=== PATIENT | female | born 1985 | race Caucasian/White ===

== ENCOUNTER 2019-07-12 18:41 | Emergency (ER) | payer OTHER ==
[2019-07-12 18:57] VITALS: BP 111/69; PULSE 74; TEMP 98.1; BMI 22.4
[2019-07-12] MEDS ORDERED: CYCLOBENZAPRINE HCL 10 MG TABLET (FP) PO ONE (19:10)
[2019-07-12] MEDS ORDERED: KETOROLAC TROMETHAMINE 60 MG/2 ML VIAL IM ONE (19:10)
[2019-07-12] MEDS ORDERED: predniSONE 20 MG TABLET (UD) PO ONE (19:10)
[2019-07-12] MEDS ORDERED: predniSONE 20 MG TABLET (UD) ONE (19:11)
[2019-07-12] MEDS ORDERED: KETOROLAC TROMETHAMINE 60 MG/2 ML VIAL ONE (19:11)
[2019-07-12] MEDS ORDERED: CYCLOBENZAPRINE HCL 10 MG TABLET (FP) ONE (19:11)
--- NOTE | 2019-07-12 19:28 | PDOC ---
Documentation entered by Andre Carlos SCRIBE, acting as scribe for Keri Matos MD. Keri Matos MD: This documentation has been prepared by the Terrance henry Xhesika, SCRIBE, under my direction and personally reviewed by me in its entirety. I confirm that the documentation accurately reflects all work, treatment, procedures, and medical decision making performed by me. History of Present Illness - General Chief Complaint: Pain, Acute Stated Complaint: LBP Time Seen by Provider: 07/12/19 19:04 History Source: Patient Exam Limitations: No Limitations - History of Present Illness Initial Comments: 07/12/19 19:14 The patient is a 34 year old female, with no significant PMH of who presents to the emergency department with lower back pain since 5pm. The patient states she leaned over to clean her cats litter box and she might have pulled a muscle. The patient reports worsening pain with walking but denies any alleviating factors. Patient notes she took 2 motrins, with no improvement of symptoms. Patient notes she never experienced this pain before. PAST MEDICAL HISTORY: no significant history PAST SURGICAL HISTORY: left ovarian cyst FAMILY HISTORY: no pertinent history SOCIAL HISTORY: Pt lives with family and is employed. current everyday smoker. occasional alcohol use. MEDICATIONS: reviewed ALLERGIES: As per nursing notes 07/12/19 19:25 Assessment and plan: This is a 34-year-old female who was bending over when suddenly she felt pain in her low back area patient denies history of similar pain in the past. Patient said pain is severe enough that she is having difficulty ambulating or moving. Patient took some naproxen for the pain before coming in. Patient given Toradol, Flexeril and prednisone. Prescription sent to pharmacy for naproxen and Flexeril. Patient discharged and given Dr. Kaminski orthopedist referral Past History - Past Medical History Allergies/Adverse Reactions: Allergies Allergy/AdvReac Type Severity Reaction Status Date / Time No Known Allergies Allergy Verified 07/12/19 18:42 Home Medications: Ambulatory Orders Cyclobenzaprine HCl [Flexeril 10 mg] 10 mg PO BID PRN #14 tablet 07/12/19 Naproxen [Naprosyn] 500 mg PO BID #28 tablet 07/12/19 Asthma: No COPD: No Diabetes: No HTN: No - Surgical History Abdominal Surgery: Yes (LT OVARIAN CYST.) - Immunization History Td Vaccination: Yes Immunization Up to Date: Yes - Psycho Social/Smoking Cessation Hx Smoking Status: Yes Smoking History: Current every day smoker Years of Tobacco Use: 14 Have you smoked in the past 12 months: Yes Number of Cigarettes Smoked Daily: 5 Information on smoking cessation initiated: Yes 'Breaking Loose' booklet given: 01/05/14 Hx Alcohol Use: Yes (OCASIONAL) Drug/Substance Use Hx: No Substance Use Type: Alcohol, Cocaine Review of Systems - Review of Systems Able to Perform ROS?: Yes Comments:: 07/12/19 19:15 General: No fevers or chills, no weakness, no weight loss HEENT: No change in vision. No sore throat,. No ear pain CardioVascular: No chest pain or shortness of breath Respiratory:No cough, or wheezing. Gastrointestinal: no nausea, vomiting, diarrhea or constipation, No rectal bleeding Genitourinary: No dysuria, hematuria, or frequency Musculoskeletal: +lower back pain. No joint or muscle swelling Neurologic: No headache, vertigo, dizziness or loss of consciousness Psychiatric: nor depression Skin: No rashes or easy bruising Endocrine: no increased thirst or abnormal weight change Allergic: no skin or latex allergy All other systems reviewed and normal *Physical Exam - Vital Signs Last Vital Signs Temp Pulse Resp BP Pulse Ox 98.1 F 74 15 111/69 96 07/12/19 18:42 07/12/19 18:42 07/12/19 18:42 07/12/19 18:42 07/12/19 18:42 - Physical Exam Comments: 07/12/19 19:15 GENERAL: The patient is awake, alert, and fully oriented, in no acute distress. HEAD: Normal with no signs of trauma. EYES: Pupils equal, round and reactive to light, extraocular movements intact, sclera anicteric, conjunctiva clear. BACK: + tenderness over palpation of lumbar spine. + paraspinal spasm bilaterally at mid lumbar area. Straight leg raises negative. No tenderness over sciatic rise. EXTREMITIES: Normal range of motion, no edema. NEUROLOGICAL: Normal speech, normal gait. PSYCH: Normal mood, normal affect. SKIN: Warm, Dry, normal turgor, no rashes or lesions noted. ED Treatment Course - Medications Given in the ED: ED Medications Discontinued Medications Generic Name Dose Route Start Last Admin Trade Name Freq PRN Reason Stop Dose Admin Cyclobenzaprine HCl 10 mg 07/12/19 19:10 07/12/19 19:12 Flexeril - PO 07/12/19 19:11 10 mg ONCE ONE Administration Ketorolac Tromethamine 60 mg 07/12/19 19:10 07/12/19 19:14 Toradol Injection - IM 07/12/19 19:11 60 mg ONCE ONE Administration Prednisone 40 mg 07/12/19 19:10 07/12/19 19:12 Deltasone - PO 07/12/19 19:11 40 mg ONCE ONE Administration Discharge - Discharge Information Problems reviewed: Yes Clinical Impression/Diagnosis: Low back pain Qualifiers: Chronicity: acute Back pain laterality: midline Sciatica presence: without sciatica Qualified Code(s): M54.5 - Low back pain Condition: Stable Disposition: HOME - Admission No - Additional Discharge Information Prescriptions: Cyclobenzaprine HCl [Flexeril 10 mg] 10 mg PO BID PRN #14 tablet PRN Reason: Back Pain Naproxen [Naprosyn] 500 mg PO BID #28 tablet - Follow up/Referral Referrals: Redd Howard MD [Primary Care Provider] - Avery Kaminski MD [Staff Physician] - - Patient Discharge Instructions Additional Instructions: Take naproxen 1 tablet twice a day with food do not take on empty stomach for the pain Take Flexeril 1 tablet as often as twice a day. The Flexeril will make you drowsy so you may have to limit it to the nighttime hours if you were working. Follow-up with Dr. Kaminski next Tuesday if you are still not better Return to the emergency department immediately with ANY new, persistent or worsening symptoms. Continue any medications as previously prescribed by your physician. You should follow up with your primary doctor as soon as possible regarding today's emergency department visit. . Please make sure your doctor reviews the results of your emergency evaluation. Thank you for coming to the Emergency Department today for your care. It was a pleasure to see you today. Please note that your evaluation is INCOMPLETE until you follow-up with your doctor. - Post Discharge Activity Work/Back to School Note: Back to Work
== END 2019-07-12 20:10 | disposition home or self-care (01) ==
LOC: FER 18:41
PROC: 3E0233Z Introduction of Anti-inflammatory into Muscle, Percutaneous Approach (ICD-10-PCS; principal; 2019-07-12)
DX: M54.5 Low back pain (principal); F17.210 Nicotine dependence, cigarettes, uncomplicated
CPT/HCPCS: 99282-25

== ENCOUNTER 2022-10-23 11:44 | Emergency (ER) | payer OTHER ==
[2022-10-23] MEDS ORDERED: DIPHTH,PERTUSS(ACELL),TET 0.5 ML DISP.SYRIN IM ONE ×2 (11:58→12:12)
[2022-10-23 12:01] VITALS: BP 104/63; PULSE 72; RESP 20; TEMP 98.7; BMI 25.0
[2022-10-23] MEDS ORDERED: IBUPROFEN 600 MG TABLET (FP) PO ONE ×2 (12:06→12:12)
== END 2022-10-23 12:27 | disposition home or self-care (01) ==
LOC: FER 11:44
PROC: 3E0234Z Introduction of Serum, Toxoid and Vaccine into Muscle, Percutaneous Approach (ICD-10-PCS; principal; 2022-10-23)
DX: S61.305A Unspecified open wound of left ring finger with damage to nail, initial encounter (principal); W27.2XXA Contact with scissors, initial encounter; Y93.K3 Activity, grooming and shearing an animal
CPT/HCPCS: 90471; 90715; 99284-25

== ENCOUNTER 2024-01-30 18:48 | Emergency (ER) | payer OTHER ==
[2024-01-30 19:01] VITALS: BP 115/73; PULSE 88; RESP 15; TEMP 99.1; BMI 26.6
[2024-01-30] MEDS ORDERED: KETOROLAC TROMETHAMINE 60 MG/2 ML VIAL ONE (20:49)
[2024-01-30] MEDS ORDERED: METOCLOPRAMIDE HCL 10 MG TABLET (FP) PO ONE (20:49)
[2024-01-30] MEDS: METOCLOPRAMIDE HCL 10 MG TABLET (FP) PO ONE (20:50)
[2024-01-30] MEDS: KETOROLAC TROMETHAMINE 60 MG/2 ML VIAL IM ONE (20:55)
== END 2024-01-30 21:40 | disposition home or self-care (01) ==
LOC: FER 18:48
PROC: 3E0133Z Introduction of Anti-inflammatory into Subcutaneous Tissue, Percutaneous Approach (ICD-10-PCS; principal; 2024-01-30)
DX: R51.9 Headache, unspecified (principal)
CPT/HCPCS: 70450-TC; 99284-25